=== PATIENT | female | born 1985 | race African-American/Black ===

== ENCOUNTER 2021-09-01 11:32 | Inpatient (IN) | payer OTHER ==
[2021-09-01 11:57] VITALS: BMI 19.5
[2021-09-01] MEDS ORDERED: LOPERAMIDE HCL 2 MG CAPSULE PO PRN (12:12)
[2021-09-01] MEDS ORDERED: BISMUTH SUBSALICYLATE 524 MG/30 ML PO PRN (12:12)
[2021-09-01] MEDS ORDERED: MAG HYDROX/AL HYDROX/SIMETH 30 ML UNIT-DOSE CUP PO PRN (12:12)
[2021-09-01] MEDS ORDERED: ACETAMINOPHEN 325 MG TABLET (FP) PO PRN ×2 (12:12)
[2021-09-01] MEDS ORDERED: DICYCLOMINE HCL 10 MG CAPSULE PO PRN (12:12)
[2021-09-01] MEDS ORDERED: MAGNESIUM HYDROX 2400MG/30ML ORAL SUSPENSION 30 ML CUP PO PRN (12:12)
[2021-09-01] MEDS ORDERED: NALOXONE HCL 0.4 MG/ML VIAL IM PRN (12:12)
[2021-09-01] MEDS ORDERED: IBUPROFEN 600 MG TABLET (FP) PO PRN (12:12)
[2021-09-01] MEDS ORDERED: BENZOCAINE/MENTHOL (CHLORASEPTIC ) LOZENGE MM PRN (12:12)
[2021-09-01] MEDS ORDERED: IBUPROFEN 400 MG TABLET (FP) PO PRN (12:12)
[2021-09-01] MEDS ORDERED: methaDONE HCL 10 MG TABLET (FOR DETOX USE ONLY) PO ONE (12:12)
[2021-09-01] MEDS ORDERED: MAGNESIUM CITRATE 300 ML BOTTLE PO PRN (12:12)
[2021-09-01] MEDS: THIAMINE HCL 100 MG TABLET (FP) PO SCH (22:58)
[2021-09-01] MEDS: MELATONIN 5 MG TABLETS PO SCH (22:58)
[2021-09-02] MEDS: METHOCARBAMOL 500 MG TABLET PO PRN ×2 (09:04→22:21)
[2021-09-02] MEDS: cloNIDine HCL 0.1 MG TABLET PO PRN (09:04)
[2021-09-02] MEDS ORDERED: methaDONE HCL 10 MG TABLET (FOR DETOX USE ONLY) ONE (09:44)
[2021-09-02 10:17] LABS: HEMATOCRIT 37.1 % (32.4-45.2); HEMOGLOBIN 12.1 GM/dL (10.7-15.3); MCH 30.7 pg (25.7-33.7); MCHC 32.7 g/dl (32.0-36.0); MEAN CELL VOLUME 93.9 fl (80-96); MEAN PLT VOLUME 8.3 fl (7.5-11.1); PLATELET COUNT 230 10^3/uL (134-434); RBC 3.95 M/mm3 (3.60-5.2); RDW 13.3 % (11.6-15.6); WHITE BLOOD COUNT 5.3 K/mm3 (4.0-10.0)
[2021-09-02] MEDS: PRENATAL VITAMINS W/ FOLIC ACID TABLET (FP) PO SCH (10:21)
[2021-09-02] MEDS: NICOTINE 7 MG/24 HOURS TOPICAL PATCH TD SCH (10:23)
[2021-09-02 10:27] LABS: ALBUMIN 3.9 g/dl (3.4-5.0); CALCIUM 9.2 mg/dL (8.5-10.1)
[2021-09-02 10:28] LABS: BLOOD UREA NITROGEN 12.7 mg/dL (7-18)
[2021-09-02 10:30] LABS: CREATININE 0.8 mg/dL (0.55-1.3)
[2021-09-02 10:31] LABS: TOT PROT 7.8 g/dl (6.4-8.2)
[2021-09-02 10:32] LABS: BILIRUBIN,TOTAL 0.5 mg/dL (0.2-1)
[2021-09-02] MEDS: diazePAM 5 MG TABLET PO PRN ×2 (17:42→22:21)
[2021-09-02] MEDS: THIAMINE HCL 100 MG TABLET (FP) PO SCH (22:19)
[2021-09-02] MEDS: MELATONIN 5 MG TABLETS PO SCH (22:19)
[2021-09-03] MEDS: diazePAM 5 MG TABLET PO PRN ×3 (06:39→18:52)
[2021-09-03] MEDS: PRENATAL VITAMINS W/ FOLIC ACID TABLET (FP) PO SCH (09:57)
[2021-09-03] MEDS: NICOTINE 7 MG/24 HOURS TOPICAL PATCH TD SCH (09:58)
[2021-09-03] MEDS: METHOCARBAMOL 500 MG TABLET PO PRN (09:59)
[2021-09-03] MEDS ORDERED: methaDONE HCL 10 MG TABLET (FOR DETOX USE ONLY) PO ONE (10:00)
[2021-09-03] MEDS: cloNIDine HCL 0.1 MG TABLET PO PRN (18:52)
[2021-09-03] MEDS: THIAMINE HCL 100 MG TABLET (FP) PO SCH (23:04)
[2021-09-03] MEDS: MELATONIN 5 MG TABLETS PO SCH (23:04)
[2021-09-04] MEDS: diazePAM 5 MG TABLET PO PRN ×2 (06:32→18:25)
[2021-09-04] MEDS ORDERED: methaDONE HCL 10 MG TABLET (FOR DETOX USE ONLY) ONE (08:57)
[2021-09-04] MEDS: NICOTINE 7 MG/24 HOURS TOPICAL PATCH TD SCH (10:13)
[2021-09-04] MEDS: PRENATAL VITAMINS W/ FOLIC ACID TABLET (FP) PO SCH (10:13)
[2021-09-04] MEDS: METHOCARBAMOL 500 MG TABLET PO PRN ×2 (10:13→18:25)
[2021-09-04] MEDS: MELATONIN 5 MG TABLETS PO SCH (22:58)
[2021-09-04] MEDS: THIAMINE HCL 100 MG TABLET (FP) PO SCH (22:58)
[2021-09-05] MEDS: diazePAM 5 MG TABLET PO PRN (06:20)
[2021-09-05] MEDS ORDERED: methaDONE HCL 10 MG TABLET (FOR DETOX USE ONLY) PO ONE (10:00)
[2021-09-05] MEDS: PRENATAL VITAMINS W/ FOLIC ACID TABLET (FP) PO SCH (10:03)
[2021-09-05] MEDS: NICOTINE 7 MG/24 HOURS TOPICAL PATCH TD SCH (10:04)
[2021-09-05] MEDS: NICOTINE 10 MG CARTRIDGE (INHALER) IH PRN ×2 (10:04→17:38)
[2021-09-05] MEDS: METHOCARBAMOL 500 MG TABLET PO PRN (19:10)
[2021-09-05] MEDS: MELATONIN 5 MG TABLETS PO SCH (22:02)
[2021-09-05] MEDS: THIAMINE HCL 100 MG TABLET (FP) PO SCH (22:02)
[2021-09-06 09:03] VITALS: BP 107/58; PULSE 90; TEMP 97.5
[2021-09-06] MEDS: NICOTINE 7 MG/24 HOURS TOPICAL PATCH TD SCH (09:40)
[2021-09-06] MEDS: PRENATAL VITAMINS W/ FOLIC ACID TABLET (FP) PO SCH (09:40)
== END 2021-09-06 09:32 | disposition home or self-care (01) | DRG 773 ==
LOC: YASAS 11:32 → Y3N 12:46
PROVIDERS: ADMIT Allergy & Immunology; ATTEND Surgery
PROC: HZ2ZZZZ Detoxification Services for Substance Abuse Treatment (ICD-10-PCS; principal; 2021-09-01)
DX: F11.23 Opioid dependence with withdrawal (principal); F14.20 Cocaine dependence, uncomplicated; F12.20 Cannabis dependence, uncomplicated; F17.210 Nicotine dependence, cigarettes, uncomplicated; F32.A Depression, unspecified
CPT/HCPCS: 36415; 80053; 81025; 85027; 86780; 87811; 93005; 93010; C9803-CS; J0735; U0003; U0005